=== PATIENT | female | born 1955 | race Caucasian/White ===

== ENCOUNTER 2021-05-04 08:22 | Day surgery (SDC) | payer OTHER ==
[~2021-05-04] VITALS: Ht 172.7 cm; Wt 67.6 kg
[2021-05-04] MEDS ORDERED: fentaNYL citrate 0.05 MG/ML VIAL ONE (12:11)
[2021-05-04] MEDS ORDERED: LIDOCAINE 2% 100 MG/5 ML UJET TP ONE ×2 (12:11→12:40)
[2021-05-04] MEDS ORDERED: MIDAZOLAM 5 MG/5 ML VIAL ONE (12:11)
[2021-05-04] MEDS ORDERED: fentaNYL citrate 0.05 MG/ML VIAL IVP ONE (12:50)
== END 2021-05-04 13:00 | disposition home or self-care (01) ==
LOC: MDS 08:22 → MMU 09:37 → MDS 13:00
PROVIDERS: ATTEND Internal Medicine Gastroenterology
DX: Z12.11 Encounter for screening for malignant neoplasm of colon (principal); K57.30 Diverticulosis of large intestine without perforation or abscess without bleeding; Z80.0 Family history of malignant neoplasm of digestive organs; Z79.899 Other long term (current) drug therapy
CPT/HCPCS: 45378; J3010; J2250